=== PATIENT | male | born 1950 | race Caucasian/White ===

== ENCOUNTER 2018-10-31 07:45 | Inpatient (IN) | payer MEDICARE, OTHER ==
--- NOTE | 2018-10-25 13:45 | HP ---
HISTORY AND PHYSICAL: DATE OF ADMISSION/SURGERY: 10/31/18 DATE OF OFFICE VISIT: 10/25/18 SURGEON: Natalie Miller MD * (DICTATED BYJOCELINE DE LUNA) PROCEDURE: Right total knee arthroplasty. CHIEF COMPLAINT: Right knee pain. HISTORY OF PRESENT ILLNESS: Mr. Florez is a 68-year-old gentleman with continued complaints of right knee pain. He has failed conservative treatment and elected to proceed with a right total knee arthroplasty. PAST MEDICAL HISTORY: Hypertension, high cholesterol, diabetes. PAST SURGICAL HISTORY: Right knee scope x2, tonsillectomy. CURRENT MEDICATIONS: 1. Metformin 500 mg daily. 2. Atenolol 50 mg daily. 3. Lovastatin 20 mg q.h.s. 4. Aspirin 81 mg. 5. Ibuprofen as needed. ALLERGIES: No known drug allergies. FAMILY HISTORY: Coronary artery disease. SOCIAL HISTORY: He is a 68-year-old gentleman. He lives with his spouse. He does not smoke or use drugs. Uses occasional alcohol. REVIEW OF SYSTEMS: A complete 14-point review of systems was reviewed with the patient, was positive for diabetes. He denies history of DVT, PE, hepatitis, HIV, or anesthesia problems. PHYSICAL EXAMINATION GENERAL: He is well developed, well nourished, in no acute distress. VITAL SIGNS: He stands 67 inches tall, weighs 198 pounds. His blood pressure is 142/72, his heart rate is 65. HEENT: Normocephalic, atraumatic. NECK: Supple. No palpable lymph nodes. PULMONARY: The lungs are clear to auscultation bilaterally. CARDIO: Regular rate and rhythm. Strong S1 and S2. ABDOMEN: Soft, nontender, nondistended. NEUROLOGICAL: He is alert and oriented x3. MUSCULOSKELETAL: Right lower extremity: The skin is intact. There are no open wounds or abrasions. There is some tenderness along the medial and lateral joint line. There is a 12-degree valgus deformity. Range of motion is 10 to 120 degrees of flexion. He has a 2+ dorsalis pedis pulse. His lower extremity muscle group strengths are intact at 5/5. He has intact sensation. ASSESSMENT AND PLAN: Mr. Florez is a 68-year-old gentleman with end-stage osteoarthritis of the right knee. He has failed conservative treatment and elected to proceed with a right total knee arthroplasty. The surgery is scheduled for 10/31/[address] Miller discussed the risks and benefits of the surgery at today's visit and all of his questions were answered. He will follow up with Dr. Miller 2 weeks after the surgery. JOCELINE DE LUNA [id number]/[facility] #: [id number] MONA
[~2018-10-31 07:45] MED LIST: Buffered Lidocaine 1% SYRIN* 1 ML/SYRINGE INTRADERM ONE; Dexamethasone IV* 4 MG/ML 1 ML (4 MG) IV SLOW PU ONE; Famotidine IV* 10 MG/ML 2 ML (20 mg) IV ONE; Gabapentin CAP(*) 300 MG PO ONE; Lactated Ringers 1000 ML Bag* 1,000 ML IV SCH; Tranexamic Acid 1,000 MG in NS 0.9% 50 ML* (outpatient use) IV SCH; celeCOXIB CAP* 200 MG PO ONE
--- OUTSIDE RECORDS SUMMARY | 2018-10-31 07:49 | XMS REPORT | Continuity of Care Document ---
:1950 External Reference #:[id number] Author Name Za Dunlap Care Team Providers Name Role Phone Anatoly Fuller MD Primary Care Physician Unavailable Payers Date Identification Numbers Payment Provider Subscriber Policy Number: [id number] Medicare Jonathan Florez PayID: [id number] [address] [place] [address] Expires: 2018 Policy Number: [id number] Medicare Jonathan Florez PayID: [id number] [address] [place] [address] Policy Number: [id number] [employer]-[facility] Jonathan Florez PayID: [id number] [address] [place] [address] Advance Directives Description No Information Available Problems Date Description Provider Status Onset: 04/10/2018 Localized, primary osteoarthritis Natalie Miller M.D. Active Onset: 04/10/2018 Acquired genu valgum Natalie Miller M.D. Active Onset: 04/10/2018 Localized, secondary osteoarthritis Natalie Miller M.D. Active Family History Date Family Member(s) Observation Comments General Heart Disease General Hypertension Social History Type Date Description Comments Sex Unknown Lives With Spouse Occupation Retired Tobacco Use Start: Unknown Patient has never smoked Smoking Status Reviewed: 10/25/18 Patient has never smoked Allergies, Adverse Reactions, Alerts Description No Known Drug Allergies Medications Medication Date Status Form Strength Qnty SIG Indications Ordering Provider Metformin HCL 00/00/ Active Tablets 500mg Unknown 0000 Atenolol 00/00/ Active Tablets 50mg 1 by Unknown 0000 mouth every day Lovastatin 00/ Active Tablets 20mg take 1 Unknown 0000 tablet at bedtime Multi Vitamin 00/ Active Tablets 1 by Unknown 0000 mouth every day Aspirin Adult Low / Active Tablets 81mg 1 by Unknown Dose 0000 DR mouth every day Fish Oil / Active Unknown 0000 Cinnamon / Active Unknown 0000 Ibuprofen / Active Unknown 0000 Meloxicam 04/10/ Hx Tablets 15mg 30tabs 1 by M25.461 Natalie 2017 - mouth Paul, 05/21/ every day M.D. 2017 Cyclobenzaprine 04/10/ Hx Tablets 10mg 30tabs 1 tablet M25.461 Natalie HCL 2017 - by mouth Paul, 10/24/ [facility] as M.D. 2018 needed muscle spasms Immunizations Description No Information Available Vital Signs Date Vital Result Comment 10/25/2018 8:55am Height 67 inches 5'7" Weight 198.00 lb Heart Rate 65 /min BP Systolic 142 mmHg BP Diastolic 72 mmHg Respiratory Rate 16 /min Body Temperature 98.6 F Pain Level 0 BMI (Body Mass Index) 31.0 kg/m2 09/27/2018 10:04am Height 67 inches 5'7" Weight 196.00 lb BP Systolic 150 mmHg BP Diastolic 78 mmHg BMI (Body Mass Index) 30.7 kg/m2 05/22/2018 8:09am Height 67 inches 5'7" Weight 192.00 lb Heart Rate 72 /min BP Systolic 160 mmHg BP Diastolic 70 mmHg Pain Level 1 BMI (Body Mass Index) 30.1 kg/m2 04/10/2018 8:18am Height 65 inches 5'5" Weight 197.00 lb BP Systolic 136 mmHg BP Diastolic 76 mmHg Respiratory Rate 18 /min Body Temperature 97.8 F Pain Level 0 BMI (Body Mass Index) 32.8 kg/m2 Results Description No Information Available Procedures Description No Information Available Encounters Type Date Location Provider Dx Diagnosis Office Visit 09/27/2018 Orthopedic Natalie Miller, M25.561 Pain in right 10:00a [facility] Rm knee M25.461 Effusion, right knee M21.061 Valgus deformity, not elsewhere classified, right knee M17.11 Unilateral primary osteoarthritis, right knee Office Visit 05/22/2018 8:15a [facility] Natalie Miller, M25.561 Pain in right Of [facility] Rm knee M25.461 Effusion, right knee M21.061 Valgus deformity, not elsewhere classified, right knee M17.31 Unilateral post-traumatic osteoarthritis, right knee Office Visit 04/10/2018 8:00a [facility] Natalie Miller, M25.561 [facility].461 Effusion, right knee M21.061 Valgus deformity, not elsewhere classified, right knee M17.31 Unilateral post-traumatic osteoarthritis, right knee Plan of Treatment Future Appointment(s):11/11/2018 8:45 am - Natalie Miller M.D. at [facility]10/31/2018 10:30 am - TARA Piña at [facility].10/31/2018 10:30 am - JOCELINE Villegas at [facility].10/31/2018 10:30 am - Natalie Miller M.D. at [facility].10/25/2018 - Natalie Miller M.D.M25.561 Pain in right kneeFollow up:Follow up: 2 weeks after [id number] Effusion, right kneeM21.061 Valgus deformity, not elsewhere classified, right kneeM17.11 Unilateral primary osteoarthritis, right knee
--- OUTSIDE RECORDS SUMMARY | 2018-10-31 07:49 | XMS REPORT | Continuity of Care Document ---
:1950 External Reference #:[id number] Author Name Fina Evans O.D. Address [address] [place] [address] Care Team Providers Name Role Phone Anatoly Fuller M.D. Primary Care Physician Unavailable Payers Type Date Identification Numbers Payment Provider Subscriber Onset: 2014 Policy Number: [id number] Medicare - NGS Jonathan Florez PayID: [id number] [address] [place] [address] Policy Number: [id number] [employer] Ppo/Pos/Epo/Nap Jonathan Florez Group Number: [id number] [address] PayID: [id number] [place] [address] Advance Directives Description No Information Available Problems Date Description Provider Status Onset: Type 2 diabetes mellitus Active Onset: Essential hypertension Active Onset: Hypercholesterolemia Active Onset: 02/18/2015 Ocular hypertension Fina Evans O.D. Active Onset: 02/18/2015 Hypermetropia Fina Evans O.D. Active Onset: 02/18/2015 High Risk Open Angle Glaucoma Fina Evans O.D. Active Onset: 03/24/2016 Open angle with borderline findings, Fina Evans O.D. Active high risk, bilateral Onset: 11/12/2017 Foreign body in conjunctival sac, Christine Lennon O.D. Active right eye, initial encounter Onset: 10/05/2017 Presbyopia Fina Evans O.D. Active Family History Date Family Member(s) Problem(s) Comments Father No Current Problems Mother Glaucoma Social History Type Date Description Comments Sex Unknown Marital Status Legal Status: Occupation Retired [employer] ETOH Use Denies alcohol use Tobacco Use Start: Unknown Patient has never smoked Recreational Drug Use Never Used Drugs Smoking Status Reviewed: 10/15/18 Patient has never smoked Allergies, Adverse Reactions, Alerts Description No Known Drug Allergies Medications Medication Date Status Form Strength Qnty SIG Indications Ordering Provider Fish Oil 03/22/ Active Capsules 1000mg 1 by Fina Crystal 2015 mouth Nathan, every day O.D. Metformin HCL ER 0000/ Active Tablets ER 500mg Midura, 0000 24HR Anatoly M.D. Lovastatin 00/ Active Tablets 20mg Midura, 0000 Anatoly M.D. Atenolol 00/ Active Tablets 50mg Midura, 0000 Anatoly M.D. Ibuprofen 00/ Active Tablets 600mg Midura, 0000 Anatoly M.D. Cinnamon / Active Capsules 500mg 1 by Unknown 0000 mouth every day Centrum Silver / Active Unknown 0000 Aspirin / Active Tablets DR 81mg Unknown 0000 Meloxicam / Active Tablets 15mg Unknown 0000 Cyclobenzaprine 00/ Active Tablets 5mg Unknown HCL 0000 Erythromycin 11/12/ Hx Ointment 5mg/GM 1Tube apply T15.11xA Christine Tarango - evan Lennon, 11/16/ strip to O.D. 2018 right eye 2xday for 2 days then at bedtime only for 5 days. Immunizations Description No Information Available Vital Signs Description No Information Available Results Description No Information Available Procedures Date Code Description Status 04/12/2018 88448 Visual Field Exam Extended Completed 04/12/2018 95025 Est Patient Intermediate Exam Completed 11/12/2017 90228 Est Patient Intermediate Exam Completed 10/05/2017 26272 Scanning Computerized Ophthalmic Diagnostic Imag Posterior Completed Seg On 10/05/2017 06903 Determination Of Refractive State Completed 10/05/2017 19001 Est Patient Comprehensive Exam Completed 04/04/2017 21147 Scanning Computerized Ophthalmic Diagnostic Imag Posterior Completed Seg On 04/04/2017 16203 Visual Field Exam Extended Completed 04/04/2017 27106 Est Patient Intermediate Exam Completed 09/26/2016 76598 Determination Of Refractive State Completed 09/26/2016 25907 Est Patient Intermediate Exam Completed 03/24/2016 68138 Est Patient Comprehensive Exam Completed 03/24/2016 05412 Visual Field Exam Extended Completed 03/24/2016 14150 Scanning Computerized Ophthalmic Diagnostic Imag Posterior Completed Seg On 09/23/2015 26856 Est Patient Comprehensive Exam Completed 03/23/2015 51487 Visual Field Exam Extended Completed 03/23/2015 79919 Pachymetry Completed 02/18/2015 72827 Scanning Computerized Ophthalmic Diagnostic Imag Posterior Completed Seg On 02/18/2015 07072 Determination Of Refractive State Completed 02/18/2015 77351 Est Patient Comprehensive Exam Completed 06/25/2012 42094 Est Patient Comprehensive Exam Completed 07/04/2010 58997 Determination Of Refractive State Completed 07/04/2010 12445 New Patient Comprehensive Exam Completed Encounters Type Date Location Provider Dx Diagnosis Office Visit 03/23/2015 Jovi Bal, Fina Evans, 365.05 High Risk Open 9:45a , pc Lynn Angle Glaucoma Plan of Treatment 10/15/2018 - Fina Evans O.D.H40.023 Open angle with borderline findings, high risk, bilateralComments:Smoking can increase the risk of developing or worsening any eye related disease, as well as affect your overall health. If you are a smoker, we strongly recommend that you quit.If you are not a smoker, we strongly recommend that you do not start. Dr. Evans is considering you a Glaucoma suspect. This means the eye pressure in your eyes are higher than average, your optic nerve appearance is suspicious, or you have strong risk factors; but you have not been diagnosed with Glaucoma. Follow up appointments are very important to keep.Follow up:6 months IOP check/VF 24-2
[2018-10-31] MEDS ORDERED: Dexamethasone IV* 4 MG/ML 1 ML (4 MG) ONE (08:30)
[2018-10-31] MEDS ORDERED: celeCOXIB CAP* 100 MG ONE (08:30)
[2018-10-31] MEDS ORDERED: Famotidine IV* 10 MG/ML 2 ML (20 mg) ONE (08:30)
[2018-10-31] MEDS ORDERED: Gabapentin CAP(*) 300 MG ONE (08:30)
[2018-10-31] MEDS ORDERED: Buffered Lidocaine 1% SYRIN* 1 ML/SYRINGE INTRADERM ONE (08:31)
[2018-10-31] MEDS ORDERED: ceFAZolin 2 GM PREMIX in ORs 2 GM/50 ML BAG IVPB ONE (08:33)
[2018-10-31] MEDS ORDERED: ROPIVACAINE 5 MG/ML 30 ML BTL (0.5%) ONE (08:58)
[2018-10-31] MEDS ORDERED: fentaNYL* 50 MCG/ML 2 ML VIAL (100 MCG VIAL) ONE ×2 (08:59→12:04)
[2018-10-31] MEDS ORDERED: Midazolam* 1 MG/ML 2 ML VIAL (2 MG) ONE (08:59)
[2018-10-31] MEDS ORDERED: Lidocaine 2% PF * 5 ML VIAL ONE ×2 (08:59→09:30)
[2018-10-31] MEDS ORDERED: Bupivacaine 0.5%* 50 ML VIAL ONE (09:16)
[2018-10-31] MEDS ORDERED: Naloxone* 0.4 MG/ML 1 ML VIAL IV PRN (09:55)
[2018-10-31] MEDS ORDERED: fentaNYL* 50 MCG/ML 2 ML VIAL (100 MCG VIAL) IV PRN (09:55)
[2018-10-31] MEDS ORDERED: DiMENhydriNATE IV* 50 MG/ML VIAL IV PUSH PRN (09:55)
[2018-10-31] MEDS ORDERED: Propofol* 10 MG/ML 20 ML BTL ONE (10:35)
[2018-10-31] MEDS ORDERED: Ondansetron INJ* 2 MG/ML VIAL ONE (11:24)
[2018-10-31] MEDS ORDERED: Morphine VIAL* 4 MG/ML VIAL (1 ml vial) IV PRN (13:01)
[2018-10-31] MEDS ORDERED: diPHENhydraMINE IV* 50 MG/ML 1 ml VIAL (BENADRYL) IV PRN (13:01)
[2018-10-31] MEDS ORDERED: Cyclobenzaprine TAB* 10 MG PO PRN (13:01)
[2018-10-31] MEDS ORDERED: diPHENhydraMINE PO* 25 MG PO PRN (13:01)
[2018-10-31] MEDS ORDERED: Bisacodyl SUPP* 10 MG SUPP PR PRN (13:01)
[2018-10-31] MEDS ORDERED: Magnesium Hydroxide LIQ* 30 ML UDC PO PRN (13:01)
[2018-10-31] MEDS ORDERED: Polyethylene Glycol 3350* 17 GM PACKET PO PRN (13:01)
[2018-10-31] MEDS ORDERED: HYDROmorphone INJ1* 1 MG/ML SYRINGE ONE (13:08)
[2018-10-31] MEDS ORDERED: oxyCODONE/Acetamin 5/325 MG* TAB PO PRN (13:12)
[2018-10-31] MEDS: HYDROmorphone INJ1* 1 MG/ML SYRINGE IV PRN ×3 (13:13→13:33)
[2018-10-31] MEDS ORDERED: oxyCODONE/Acetamin 5/325 MG* TAB ONE (13:40)
[2018-10-31] MEDS: oxyCODONE/Acetamin 5/325 MG* TAB PO PRN ×2 (13:42→19:49)
[2018-10-31] MEDS: traMADol TAB* 50 MG PO PRN (15:06)
--- NOTE | 2018-10-31 15:46 | PN ---
Progress Note - Progress Note Date of Service: 10/31/18 Note: patient seen at bedside, present. He is doing well. Block still working well, no complaints of knee pain POD 0 s/p Right total knee arthroplasty. has active dorsiflexion of the right foot, gross sensation intact. Eliquis for DVT prophylaxis to start in am 2/15.
[2018-10-31] MEDS: oxyCODONE TAB* 5 MG TAB PO PRN ×2 (16:54→22:44)
[2018-10-31] MEDS: Lactated Ringers 1000 ML Bag* 1,000 ML IV SCH (16:55)
[2018-10-31] MEDS: Acetaminophen TAB* 325 MG PO SCH ×2 (17:17→23:45)
[2018-10-31] MEDS: CMCS:Lovastatin (NF) 10 MG TAB PO SCH (18:06)
[2018-10-31] MEDS: ceFAZolin 1 GM ADVAN(*) 1 GM in NS 0.9% 50 ML* 50 ML IVPB SCH (18:28)
--- NOTE | 2018-10-31 19:25 | CONS ---
[facility] MEDICINE CONSULTATION REPORT: DATE OF CONSULT: 10/31/18 PROVIDER: Laura Elizondo NP ATTENDING PHYSICIAN: Dr. Miller. CONSULTING PHYSICIAN: Dr. Juan Carlos Rios (dictated by Laura Elizondo NP) . REASON FOR CONSULT: Co-management of chronic medical conditions. HISTORY OF PRESENT ILLNESS: Mr. Florez is a 68-year-old male with a past medical history significant for hypertension, hyperlipidemia, and type 2 diabetes, who presented to [facility] today for an elective right total knee arthroplasty with Dr. Miller. For complete details, please see dictated H and P from JOCELINE Dunn. In brief, the patient had ongoing pain and failed conservative measures, therefore opted for an elective right total knee arthroplasty with Dr. Miller. In the immediate postoperative period, the patient does complain of mild right knee pain. He has no other complaints. He denies any recent fever, chills, nausea, vomiting, or diarrhea. Denies any abdominal pain. Denies any chest pain or shortness of breath. Denies any cough or hemoptysis. Denies any urinary frequency, urgency, or dysuria. He denies any recent sick contacts. Due to his history of hypertension, hyperlipidemia, and diabetes, we were asked to co-manage his care during this hospitalization. PAST MEDICAL HISTORY: 1. Hypertension. 2. Hyperlipidemia. 3. Diabetes. PAST SURGICAL HISTORY: 1. Tonsillectomy. 2. Right knee surgery x2. 2. Colonoscopy. HOME MEDICATIONS: Include: 1. Metformin 500 mg p.o. daily. 2. Atenolol 50 mg p.o. daily. 3. Lovastatin 20 mg p.o. daily. 4. Aspirin 81 mg p.o. daily. 5. Ibuprofen p.r.n. ALLERGIES: No known drug allergies. FAMILY HISTORY: Mother with a history of heart disease. Brother with a history of bypass and heart disease. Brother with a history of diabetes. No reported history of cancer. SOCIAL HISTORY: The patient denies any smoking history. Does report rare alcohol use. Denies any illicit drug use. He lives with his . Surrogate decision maker in the event he is unable to make his own decision is his . He is a full code. REVIEW OF SYSTEMS: There has been no fever, no chills. No unintended weight loss. No chest pain or edema. No cough, hemoptysis, or shortness of breath. No nausea, vomiting, or diarrhea. No dysuria or urinary frequency. No focal weakness or sensory losses. No visual complaints, arthralgias, or myalgias. No skin rashes, lesions, or open sores. No depression or anxiety. PHYSICAL EXAM: Vital Signs: Blood pressure 128/47, temperature 97.3, heart rate is 58, respirations 16, O2 saturation 100%. General: Mr. Florez is sitting on the stretcher in the recovery room. He is in no acute distress. HEENT: Head is atraumatic, normocephalic. Eyes: EOMs are intact. Sclerae anicteric and not pale. Oral mucosa appeared to be moist. Neck is supple. Lungs are clear to auscultation bilaterally. No wheezes, rales, or rhonchi. Cardiac: S1 , S2. Regular rate and rhythm. Abdomen is soft and nontender. Bowel sounds are present x4. Extremities: Pedal pulses are +2 bilaterally. Sensation is intact to bilateral lower extremities. He is able to move all 4 extremities. DIAGNOSTIC STUDIES/LAB DATA: WBCs on 10/25/18 were 10.9, RBCs 5.0, hemoglobin 14.9, hematocrit was 44, platelet count was 239. INR was 0.90. Sodium 139, potassium 4.6, chloride 103, carbon dioxide was 29, anion gap 7, BUN was 18, creatinine 0.91, glucose was 194. ASTs were 19, ALTs were 23, alkaline phosphatase was 83. Urine was within normal limits, no abnormalities. IMPRESSION AND PLAN: Mr. Florez is a 68-year-old male with past medical history significant for hypertension, hyperlipidemia, and diabetes, who presented to [facility] for an elective right total knee arthroplasty with Dr. Miller. In the immediate postoperative period, the patient has no complaints. Our recommendations are as follows: 1. Status post right total knee arthroplasty. Management per Orthopedics. PT/ OT per Orthopedics. DVT prophylaxis per Orthopedics. Bowel regimen per Orthopedics. Pain management per Orthopedics. 2. Hypertension. I would continue his atenolol with holding parameters for systolic blood pressure less than 110. 3. Hyperlipidemia. He should continue on his lovastatin as previously prescribed. 4. Diabetes. I would hold his metformin and place him on a lispro sliding scale with a consistent carb diet, Accu-Cheks a.c. 5. DVT prophylaxis: Per Orthopedics. 6. He is a full code. 7. Fluids, electrolytes, and nutrition: He should be placed on a consistent carb diet. TIME SPENT: Time spent on this consultation was 45 minutes, more than half that time was spent at the bedside interviewing the patient of events leading thus far to his hospitalization, the other half the time was spent performing my physical exam and reviewing my plan of care. I have discussed this with my attending, Dr. Juan Carlos Rios; he is in agreement with my plan. LAURA ELIZONDO, CENTER MACHINE OPERATOR [id number]/[facility] #: [id number] MONA
[2018-10-31] MEDS: Docusate CAP* 100 MG PO SCH (19:50)
[2018-10-31] MEDS: Magnesium Hydroxide LIQ* 30 ML UDC PO SCH (19:50)
[2018-11-01] MEDS ORDERED: Dextrose 50% Syringe 50 ML* 25 GM/50 ML SYRINGE IV PUSH PRN (01:04)
[2018-11-01] MEDS: oxyCODONE/Acetamin 5/325 MG* TAB PO PRN ×3 (01:24→17:35)
[2018-11-01] MEDS: ceFAZolin 1 GM ADVAN(*) 1 GM in NS 0.9% 50 ML* 50 ML IVPB SCH ×2 (02:13→10:21)
[2018-11-01] MEDS: oxyCODONE TAB* 5 MG TAB PO PRN ×3 (03:57→15:20)
[2018-11-01] MEDS: Lactated Ringers 1000 ML Bag* 1,000 ML IV SCH (03:58)
[2018-11-01] MEDS: Ondansetron INJ* 2 MG/ML VIAL IV PRN ×2 (05:58→11:51)
[2018-11-01 06:58] LABS: Hematocrit 39 % (42-52); Hemoglobin 12.9 g/dl (14.0-18.0); Mean Platelet Volume 8.2 fL (7.4-10.4); Platelet Count 223 10^3/ul (150-450)
[2018-11-01 07:16] LABS: BUN/Creatinine Ratio 17.7 (8-20); Calcium 9.2 mg/dL (8.6-10.3); EGFR African American 117.3 (>60); Potassium 4.3 mmol/L (3.5-5.0)
[2018-11-01] MEDS: Acetaminophen TAB* 325 MG PO SCH ×2 (08:17→15:21)
[2018-11-01] MEDS: Atenolol TAB* 50 MG PO SCH (08:18)
[2018-11-01] MEDS: Apixaban* 2.5 MG TAB PO SCH ×2 (08:19→20:51)
[2018-11-01] MEDS: Docusate CAP* 100 MG PO SCH ×2 (08:20→20:51)
[2018-11-01] MEDS: Magnesium Hydroxide LIQ* 30 ML UDC PO SCH ×2 (08:20→20:51)
[2018-11-01] MEDS ORDERED: metFORMIN* 500 MG TAB PO SCH (09:00)
[2018-11-01] MEDS ORDERED: Atenolol TAB* 50 MG PO SCH (09:00)
[2018-11-01] MEDS: Insulin LISPRO* 1 UNITS UNIT SUBCUT SCH ×3 (10:18→19:31)
[2018-11-01] MEDS: traMADol TAB* 50 MG PO PRN ×2 (10:22→17:36)
[2018-11-01] MEDS ORDERED: Scopolamine 1.5 mg* PATCH TRANSDERM SCH (11:00)
--- NOTE | 2018-11-01 11:27 | PN ---
Progress Note - Progress Note Date of Service: 11/01/18 SOAP: Subjective: []Patient seen OOB in chair, present. He had one episode of vomiting this am. Had Zofran earlier. He thinks it may be the Morphine causing N/V. His pain is in otherwise good control. He denies SOB, CP, palpitations. Objective: [] Vital Signs Temp 97.4 F 11/01/18 07:33 Pulse 56 11/01/18 07:33 Resp 18 11/01/18 10:22 BP 137/41 11/01/18 07:33 Pulse Ox 100 11/01/18 07:33 Intake & Output 10/31/18 11/01/18 11/01/18 18:59 06:59 18:59 Intake Total 2000 950 250 Output Total 200 1450 Balance 1800 -500 250 Weight 197 lb Intake: IV Fluids 2000 100 ABX - CEFAZOLIN 100 LR 2000 Oral 850 250 Output: Gao 200 1450 Other: # Bowel Movements 0 Laboratory Results - last 24 hr 11/01/18 11/01/18 11/01/18 06:41 06:41 07:23 Hgb 12.9 L Hct 39 L Plt Count 223 MPV 8.2 Sodium 137 Potassium 4.3 Chloride 101 Carbon Dioxide 28 Anion Gap 8 BUN 14 Creatinine 0.79 Est GFR ( Amer) 117.3 Est GFR (Non-Af Amer) 97.0 BUN/Creatinine Ratio 17.7 Glucose 183 H POC Glucose (mg/dL) 173 H Calcium 9.2 Right knee dressings are dry and intact calf NT and soft +Df right ankle sensation and circulation intact distally Assessment: []s/p Right total knee arthroplasty POD #1 Plan: []PT/OT WBAT RLE Scopolamine patch ordered Eliquis 2.5 mg BID for DVT prophylaxis Home in 1-2 days
--- NOTE | 2018-11-01 11:46 | OP ---
OPERATIVE NOTE: DATE OF OPERATION: 10/31/18 DATE OF : 46 ATTENDING SURGEON: Natalie Miller MD. ASSEMBLER CONVERTIBLE TOP: JOCELINE Piña. Ms. Tran did help throughout the procedure with preparation of the leg, wound retraction, manipulat ion of the knee, and would closure. ANESTHESIOLOGIST: Dr. Vargas. ANESTHESIA: Spinal. PRE-OP DIAGNOSIS: Severe end-stage degenerative osteoarthritis of the right knee joint. POST-OP DIAGNOSIS: Severe end-stage degenerative osteoarthritis of the right knee joint. OPERATIVE PROCEDURE: Right total knee arthroplasty. TOURNIQUET TIME: 55 minutes. ESTIMATED BLOOD LOSS: 200 cc. COMPLICATIONS: None. SPECIMEN: Bone and cartilage from the right knee joint sent to pathology. HARDWARE: This is cemented [employer] total knee arthroplasty hardware. Two packages of Simpl ex bone cement. For the femur, a right size 6 narrow posterior stabilized Legion femoral component. For the tibia, a size 5 right Anne Marie II tibial base plate. For the insert, a 9-mm posterior stabil ized insert. For the patella, a 32-mm 3-peg all poly patella with 7.5 thickness. BRIEF HISTORY/INDICATION: Mr. Florez is a 68-year-old gentleman with years of increasingly severe righ t knee pain. He failed conservative treatment with antiinflammatories, pain medication, intraarticul ar injection, and physical therapy. Radiograph showed [id number] arthritis. Due to continued pain and decreased quality of life, he elected to undergo right total knee arthroplasty. Informed consent was obtained from the patient. He understood the risks of surgery included but were not limited to bleeding, infection, damage to nearby structures, continued pain, need for further surgery, intraoper ative fracture, nerve palsy, hardware failure or loosening, knee stiffness, loss of motion, stroke, h eart attack, blood clot, and . He wished to proceed. INTRAOPERATIVE FINDINGS: Intraoperatively, the patient was noted to have severe end-stage arthritis with tricompartmental full-thickness loss of cartilage. DESCRIPTION OF PROCEDURE: Mr. Florez was identified in the preanesthesia unit. His right lower extrem ity was marked as correct operative site. Informed consent was signed and placed in the chart. The patient was taken to the operating room and was placed under spinal anesthesia. A Gao catheter was placed. Tourniquet was placed on the right thigh. Right lower extremity was prepped and draped in the usual sterile fashion. Pre-op time-out was made to correctly identify the patient, side, and sit e. Appropriate perioperative antibiotics were given within 1 hour of incision. Tourniquet was inflated and total tourniquet time for this procedure was 55 minutes. A midline incis ion was made with a 10-blade and carried down to the extensor mechanism. A new 10-blade was used to make a standard medial parapatellar arthrotomy. Patella was subluxed laterally. Electrocautery was used to subperiosteally elevate the soft tissue off the superomedial tibia to the mid sagittal plane. The patella was subluxed laterally. Knee was flexed up. The anterior horn of the lateral meniscus and ACL were sharply released. A drill was used to enter the distal femur. Intramedullary distal f emoral cutting guide was pinned on the distal femur. Oscillating saw was used to make the distal fem oral cut. Next, the external rotation guide was pinned on the distal femur. The distal femur was si zed to a size 6. Size 6 multi-cutting jig was pinned on the distal femur. Oscillating saw was used to make the appropriate 4-chamfer cuts. The PCL was completely released. Extramedullary tibial cutting guide was pinned on the proximal tibi a. Oscillating saw was used to make the proximal tibial cut perpendicular to the mechanical axis of the tibia. The bone was carefully removed. Knee was brought out out into full extension. There was good medial and lateral ligamentous balancing. Flexion and extension gaps were well balanced. The k nee was flexed up. Lamina director of elementary education was placed both medially and laterally. Any remaining meniscus w as carefully removed using electrocautery. Curved osteotome was used to remove any posterior osteoph ytes. Tibial tray and drop ralph were placed and showed a satisfactory tibial cut. A right size 6 narrow femoral trial was impacted onto the distal femur. The trial had excellent fit and stability. The box for the posterior stabilized implant was prepared using a reamer and box cut osteotome. Size 5 tibial trial with a 9-mm insert trial was placed and the knee was taken through ra nge of motion. Knee had full extension to 130 degrees of flexion with good patellofemoral tracking. Patella was everted. A 7-mm of patellar bone and cartilage was carefully removed using an oscillatin g saw. Patella was sized to a size 32. Three peg holes were drilled through the size 32 guide. A 3 2 trial patella with 7.5 thickness was placed and the knee was taken through range of motion. There was satisfactory patellofemoral tracking. All trials were carefully removed. The tibia was subluxed anteriorly and sized to a size 5. Proxima l tibia was prepared using a size 5 keel punch. All bony cut surfaces were copiously irrigated with sterile saline and dried. Final implants were cemented into place starting with the tibia, followed by the femur, and last the patella. A 9-mm insert trial was placed while the knee was brought out in to full extension. Tourniquet was turned down at 55 minutes. Electrocautery was used to obtain meti culous hemostasis. The knee was copiously irrigated with sterile saline. Once the cement had fully cured, the insert trial was removed. Any excess cement was removed around the capsule and hardware. Final insert chosen was a 9-mm posterior stabilized articular insert, size 5/6. This was locked int o position on the tibial tray. Stability of the insert was checked and rechecked and noted to be sta ble. The extensor mechanism was closed using interrupted #1 Vicryls. The rest of the incision was closed in a layered fashion using 0 and 2-0 Vicryls. Skin was closed using running 3-0 nylon suture. Steri le Xeroform, 4x4s, and Webril were used to cover the incision. Serg wrap and cold pack were placed ov er this. The patient's anesthesia was reversed without difficulty. He was taken to the PACU in stab le condition. Intended weightbearing will be weightbearing as tolerated. Intended DVT prophylaxis w ill be Eliquis. [id number]/[facility] #: [id number]
--- NOTE | 2018-11-01 14:31 | PN ---
Subjective Date of Service: 11/01/18 Interval History: Pt is feeling well. He rates his pain at 4-5/10. He was up with PT today, and states that it went well. He had some nausea this morning after a dose of Clark , which is slowly subsiding after administration of zofran and scop patch. Pt is hopeful for discharge tomorrow. He denies CP, SOB, cough, fever, abd pain, v /d/c, pain in the calves, swelling in the LE. Objective Active Medications: Acetaminophen (Tylenol Tab*) 975 mg PO Q8H ANGÉLICA Apixaban (Eliquis*) 2.5 mg PO BID ANGÉLICA Atenolol (Tenormin Tab*) 50 mg PO QAM ANGÉLICA Bisacodyl (Dulcolax Supp*) 10 mg VT DAILY PRN Cyclobenzaprine HCl (Flexeril Tab*) 10 mg PO TID PRN Dextrose (D50w Syringe 50 Ml*) 12.5 gm IV PUSH .FOR FS < 60 - SS PRN Diphenhydramine HCl (Benadryl Iv*) 25 mg IV Q6H PRN Diphenhydramine HCl (Benadryl Po*) 25 mg PO Q6H PRN Docusate Sodium (Colace Cap*) 100 mg PO BID ANGÉLICA Lactated Ringer's (Lactated Ringers 1000 Ml Bag*) 1,000 mls @ 100 mls/hr IV PER RATE ANGÉLICA Insulin Human Lispro (Humalog*) 0 units SUBCUT AC ANGÉLICA; Protocol Lactulose (Lactulose*) 30 ml PO Q6H PRN Lovastatin (Mevacor (Nf)) 20 mg PO QPM ANGÉLICA Magnesium Hydroxide (Milk Of Magnesia Liq*) 30 ml PO BID ANGÉLICA Magnesium Hydroxide (Milk Of Magnesia Liq*) 30 ml PO Q6H PRN Morphine Sulfate (Morphine Vial*) 2 mg IV Q2H PRN Ondansetron HCl (Zofran Inj*) 4 mg IV Q6H PRN Oxycodone HCl (Roxycodone Tab*) 10 mg PO Q4H PRN Oxycodone/Acetaminophen (Percocet 5/325 Tab*) 2 tab PO Q3H PRN Oxycodone/Acetaminophen (Percocet 5/325 Tab*) 1 tab PO Q3H PRN Polyethylene Glycol/Electrolytes (Miralax*) 17 gm PO DAILY PRN Scopolamine (Transderm-Scop 1.5 Mg Patch*) 1 patch TRANSDERM Q72H ANGÉLICA Tramadol HCl (Ultram*) 50 mg PO Q6H PRN Vital Signs: Temp Pulse Resp BP Pulse Ox 97.6 F 57 18 142/45 98 11/01/18 11:50 11/01/18 11:50 11/01/18 13:43 11/01/18 11:50 11/01/18 11:50 Oxygen Devices in Use Now: None Appearance: Pt is sitting in chair with leg elevated. He appears well and is in no acute distress. He is pleasant, cooperative, and appropriate. Eyes: No Scleral Icterus, PERRLA Ears/Nose/Mouth/Throat: NL Teeth, Lips, Gums, Clear Oropharnyx, Mucous Membranes Moist Neck: NL Appearance and Movements; NL JVP, Trachea Midline Respiratory: Symmetrical Chest Expansion and Respiratory Effort, Clear to Auscultation Cardiovascular: NL Sounds; No Murmurs; No JVD, RRR Abdominal: NL Sounds; No Tenderness; No Distention, No Hepatosplenomegaly Extremities: No Clubbing, Cyanosis, - - Dressings to R knee CDI; cryo unit in place. B/l calves nontender to palpation. Pedal pulses 2+ b/l. Trace edema to RLE. Skin: No Rash or Ulcers Neurological: Alert and Oriented x 3, NL Sensation Result Diagrams: 11/01/18 06:41 11/01/18 06:41 Assess/Plan/Problems-Billing Assessment: Pt is a 68yom with PMHx HTN, HLD, DMII who presents s/p RTKA. - Patient Problems (1) Status post total right knee replacement Comment: -Management per ortho team (2) Diabetes mellitus Comment: -Continue Lispro ss (3) Hypertension Comment: -Stable -Continue Atenolol (4) Hyperlipidemia Comment: -Continue lovastatin (5) DVT prophylaxis Comment: -Per ortho: ze (6) Full code status Status and Disposition: Inpatient. Discharge per ortho team.
[2018-11-01] MEDS: CMCS:Lovastatin (NF) 10 MG TAB PO SCH (19:32)
[2018-11-02] MEDS: Acetaminophen TAB* 325 MG PO SCH ×4 (01:30→23:18)
[2018-11-02] MEDS ORDERED: Acetaminophen TAB* 325 MG PO SCH (04:30)
[2018-11-02 06:48] LABS: CO2 Carbon Dioxide 27 mmol/L (22-32); Calcium 8.7 mg/dL (8.6-10.3); Chloride 101 mmol/L (101-111); Sodium 136 mmol/L (135-145)
[2018-11-02 06:54] LABS: BUN/Creatinine Ratio 18.2 (8-20); Blood Urea Nitrogen 16 mg/dL (6-24); EGFR African American 103.6 (>60); EGFR Non-African American 85.6 (>60); Glucose 156 mg/dL (70-100)
[2018-11-02 06:57] LABS: Anion Gap 8 mmol/L (2-11)
[2018-11-02 07:30] LABS: Hematocrit 35 % (42-52); Hemoglobin 11.7 g/dl (14.0-18.0); Mean Corpuscular HGB Conc 33 g/dl (31-36); Mean Corpuscular Hemoglobin 30 pg (27-31); Mean Corpuscular Volume 89 fL (80-94); Platelet Count 220 10^3/ul (150-450); Red Blood Count 3.98 10^6/ul (4.00-5.40); Red Cell Distribution Width 14 % (10.5-15); White Blood Count 12.7 10^3/ul (3.5-10.8)
[2018-11-02] MEDS: Magnesium Hydroxide LIQ* 30 ML UDC PO SCH ×2 (09:22→21:06)
[2018-11-02] MEDS: Atenolol TAB* 50 MG PO SCH (09:22)
[2018-11-02] MEDS: Apixaban* 2.5 MG TAB PO SCH ×2 (09:22→21:06)
[2018-11-02] MEDS: traMADol TAB* 50 MG PO PRN ×2 (09:22→15:31)
[2018-11-02] MEDS: Docusate CAP* 100 MG PO SCH ×2 (09:22→21:06)
[2018-11-02] MEDS: Insulin LISPRO* 1 UNITS UNIT SUBCUT SCH ×3 (09:23→18:30)
--- NOTE | 2018-11-02 09:42 | PN ---
Progress Note - Progress Note Date of Service: 11/02/18 SOAP: Subjective: []Patient seen walking with therapy and aide from bed to chair. He remains fairly unsteady. Nursing reports increased confusion last night and this am. After working with PT this am they do not feel he is safe to go home today. JHe denies dizziness, SOB, CP or palpitations. Objective: [] Vital Signs Temp 98.9 F 11/02/18 03:50 Pulse 83 11/02/18 03:50 Resp 16 11/02/18 09:22 BP 162/38 11/02/18 03:50 Pulse Ox 93 11/02/18 03:50 Intake & Output 11/01/18 11/02/18 11/02/18 18:59 06:59 18:59 Intake Total 967 1360 0 Output Total 0 Balance 967 1360 0 Intake: IV Fluids 717 ABX - CEFAZOLIN 55 LR 662 Oral 250 1360 0 Output: Urine 0 Other: Estimated Void Medium Medium # Voids 1 Laboratory Results - last 24 hr 11/01/18 11/01/18 11/02/18 11:35 16:45 05:44 WBC 12.7 H RBC 3.98 L Hgb 11.7 L Hct 35 L MCV 89 MCH 30 MCHC 33 RDW 14 Plt Count 220 Sodium Potassium Chloride Carbon Dioxide Anion Gap BUN Creatinine Est GFR ( Amer) Est GFR (Non-Af Amer) BUN/Creatinine Ratio Glucose POC Glucose (mg/dL) 145 H 150 H Calcium 11/02/18 11/02/18 05:44 08:06 WBC RBC Hgb Hct MCV MCH MCHC RDW Plt Count Sodium 136 Potassium TNP 4.1 Chloride 101 Carbon Dioxide 27 Anion Gap 8 BUN 16 Creatinine 0.88 Est GFR ( Amer) 103.6 Est GFR (Non-Af Amer) 85.6 BUN/Creatinine Ratio 18.2 Glucose 156 H POC Glucose (mg/dL) Calcium 8.7 Right knee dressings were removed, no active drainage Incision benign, mild surrounding ecchymosis calf NT and soft +DF right ankle sensation and circulation remain intact Assessment: []s/p RTK POD #2 Plan: []Decrease narcotic pain medications and see if mentation improves Continue PT/OT as tolerated WBAT RLE Eliquis BID for DVT prophylaxis Possible discharge home 11/03 if less confused and safe for discharge
--- NOTE | 2018-11-02 16:35 | PN ---
Subjective Date of Service: 11/02/18 Interval History: Patient seen and examined. Overnight, was confused and needed extra care and reorientation. Per , patient not used to narcotic pain medication and feels patient has had side effects as a result. Denies fever or chills. Pain controlled. States he feels better than he did last night. Objective Active Medications: Acetaminophen (Tylenol Tab*) 975 mg PO 0000,0800,1600 [facility] Last Admin: 11/02/18 15:31 Dose: 975 mg Apixaban (Eliquis*) 2.5 mg PO BID [facility] Last Admin: 11/02/18 09:22 Dose: 2.5 mg Atenolol (Tenormin Tab*) 50 mg PO QAM [facility] Last Admin: 11/02/18 09:22 Dose: 50 mg Bisacodyl (Dulcolax Supp*) 10 mg DC DAILY PRN PRN Reason: constipation Cyclobenzaprine HCl (Flexeril Tab*) 10 mg PO TID PRN PRN Reason: SPASMS Last Admin: 11/01/18 15:19 Dose: 10 mg Dextrose (D50w Syringe 50 Ml*) 12.5 gm IV PUSH .FOR FS < 60 - SS PRN PRN Reason: FS < 60 Diphenhydramine HCl (Benadryl Iv*) 25 mg IV Q6H PRN PRN Reason: itching Diphenhydramine HCl (Benadryl Po*) 25 mg PO Q6H PRN PRN Reason: INSOMNIA Docusate Sodium (Colace Cap*) 100 mg PO BID [facility] Last Admin: 11/02/18 09:22 Dose: 100 mg Lactated Ringer's (Lactated Ringers 1000 Ml Bag*) 1,000 mls @ 100 mls/hr IV PER RATE [facility] Last Admin: 11/01/18 03:58 Dose: 100 mls/hr Insulin Human Lispro (Humalog*) 0 units SUBCUT AC [facility]; Protocol Last Admin: 11/02/18 13:18 Dose: 2 units Lactulose (Lactulose*) 30 ml PO Q6H PRN PRN Reason: constipation Last Admin: 11/02/18 15:30 Dose: 30 ml Lovastatin (Mevacor (Nf)) 20 mg PO QPM [facility] Last Admin: 11/01/18 19:32 Dose: 10 mg Magnesium Hydroxide (Milk Of Magnesia Liq*) 30 ml PO BID [facility] Last Admin: 11/02/18 09:22 Dose: 30 ml Magnesium Hydroxide (Milk Of Magnesia Liq*) 30 ml PO Q6H PRN PRN Reason: constipation Ondansetron HCl (Zofran Inj*) 4 mg IV Q6H PRN PRN Reason: nausea Last Admin: 11/01/18 11:51 Dose: 4 mg Oxycodone/Acetaminophen (Percocet 5/325 Tab*) 1 tab PO Q3H PRN PRN Reason: PAIN - MODERATE Last Admin: 11/01/18 11:30 Dose: 2 tab Polyethylene Glycol/Electrolytes (Miralax*) 17 gm PO DAILY PRN PRN Reason: Constipation Scopolamine (Transderm-Scop 1.5 Mg Patch*) 1 patch TRANSDERM Q72H [facility] Last Admin: 11/01/18 11:30 Dose: 1 patch Tramadol HCl (Ultram*) 50 mg PO Q6H PRN PRN Reason: PAIN Last Admin: 11/02/18 15:31 Dose: 50 mg Vital Signs - 8 hr 11/02/18 11/02/18 11/02/18 09:22 11:17 11:48 Temperature 99.5 F Pulse Rate 55 Respiratory 16 16 16 Rate Blood Pressure 112/42 (mmHg) O2 Sat by Pulse 95 Oximetry 11/02/18 15:31 Temperature Pulse Rate Respiratory 16 Rate Blood Pressure (mmHg) O2 Sat by Pulse Oximetry Oxygen Devices in Use Now: None Appearance: alert, NAD Eyes: No Scleral Icterus, PERRLA Ears/Nose/Mouth/Throat: NL Teeth, Lips, Gums, Mucous Membranes Moist Neck: NL Appearance and Movements; NL JVP, Trachea Midline Respiratory: Symmetrical Chest Expansion and Respiratory Effort, Clear to Auscultation Cardiovascular: NL Sounds; No Murmurs; No JVD, RRR, No Edema Abdominal: NL Sounds; No Tenderness; No Distention, No Hepatosplenomegaly Extremities: No Edema, No Clubbing, Cyanosis Skin: No Rash or Ulcers, - - surgical site CDI Neurological: Alert and Oriented x 3, NL Sensation, NL Muscle Strength and Tone Nutrition: Taking PO's Result Diagrams: 11/02/18 05:44 11/02/18 08:06 Assess/Plan/Problems-Billing Assessment: Pt is a 68yom with PMHx HTN, HLD, DMII who presents s/p RTKA. - Patient Problems (1) Status post total right knee replacement Code(s): Z96.651 - PRESENCE OF RIGHT ARTIFICIAL KNEE JOINT SNOMED Code(s): 5569172064887 Comment: - POC as per ortho - Decrease narcotics given confusion last night - DVT prophylaxis with apixiban BID - OOB with PT/OT (2) Diabetes mellitus Code(s): E11.9 - TYPE 2 DIABETES MELLITUS WITHOUT COMPLICATIONS SNOMED Code(s) : 12491117 Comment: - Continue Lispro ss (3) Hypertension Code(s): I10 - ESSENTIAL (PRIMARY) HYPERTENSION SNOMED Code(s): 39524308 Comment: - Atenolol daily (4) Hyperlipidemia Current Visit: Yes Status: Acute Code(s): E78.5 - HYPERLIPIDEMIA, UNSPECIFIED SNOMED Code(s): 58968798 Comment: -Continue statin (5) DVT prophylaxis Code(s): JBJ3328 - SNOMED Code(s): 638985154 Comment: - Apixiban (6) Full code status Code(s): Z78.9 - OTHER SPECIFIED HEALTH STATUS SNOMED Code(s): 797570831 Status and Disposition: Inpatient. Discharge per ortho team. Medically stable.
[2018-11-02] MEDS: CMCS:Lovastatin (NF) 10 MG TAB PO SCH (18:30)
[2018-11-03 05:30] LABS: Hematocrit 36 % (42-52); Hemoglobin 12.1 g/dl (14.0-18.0); Mean Platelet Volume 8.2 fL (7.4-10.4); Platelet Count 185 10^3/ul (150-450)
[2018-11-03] MEDS: Magnesium Hydroxide LIQ* 30 ML UDC PO SCH (07:58)
[2018-11-03 08:52] VITALS: BP 145/46
[2018-11-03] MEDS: Apixaban* 2.5 MG TAB PO SCH (08:55)
[2018-11-03] MEDS: Atenolol TAB* 50 MG PO SCH (08:55)
[2018-11-03] MEDS: Insulin LISPRO* 1 UNITS UNIT SUBCUT SCH (08:55)
[2018-11-03] MEDS: Acetaminophen TAB* 325 MG PO SCH (08:55)
[2018-11-03] MEDS: Docusate CAP* 100 MG PO SCH (08:55)
--- NOTE | 2018-11-03 09:41 | PN ---
Progress Note - Progress Note Date of Service: 11/03/18 SOAP: Subjective: [] Patient seen OOB in chair. Narcotics discontinued and confusion much improved. He feels ready to go home today. Objective: [] Vital Signs Temp 98.2 F 11/03/18 08:21 Pulse 68 11/03/18 08:21 Resp 16 11/03/18 09:00 BP 145/46 11/03/18 08:21 Pulse Ox 97 11/03/18 08:21 Intake & Output 11/02/18 11/03/18 11/03/18 18:59 06:59 18:59 Intake Total 0 775 Output Total 0 0 Balance 0 775 Intake: Oral 0 775 Output: Urine 0 0 Other: Estimated Void Medium Medium Date of Last Bowel 11/03/2018 Movement # Bowel Movements 1 Estimated Stool Amount Medium # Voids 1 1 Laboratory Results - last 24 hr 11/02/18 11/02/18 11/03/18 11:58 17:20 04:52 Hgb 12.1 L Hct 36 L Plt Count 185 MPV 8.2 POC Glucose (mg/dL) 189 H 155 H 11/03/18 07:54 Hgb Hct Plt Count MPV POC Glucose (mg/dL) 141 H Right knee incision benign calf NT and soft + DF right ankle sensation and circulation intact Assessment: []s/p RTK POD 3 Plan: []Discharge home today Continue Eliquis 2.5 mg BID for 1 month post op Tylenol for pain Follow up as scheduled with Dr. Miller
--- NOTE | 2018-11-03 09:48 | PN ---
Subjective Date of Service: 11/03/18 Interval History: No overnight events. No confusion. Feels better. States he feels constipated. Discussed using miralax. Was just seen by PT and did well including well on the stairs. Tolerating PO. No CP or SOB Objective Active Medications: Acetaminophen (Tylenol Tab*) 975 mg PO 0000,0800,1600 [facility] Last Admin: 11/03/18 08:55 Dose: 975 mg Apixaban (Eliquis*) 2.5 mg PO BID [facility] Last Admin: 11/03/18 08:55 Dose: 2.5 mg Atenolol (Tenormin Tab*) 50 mg PO QAM [facility] Last Admin: 11/03/18 08:55 Dose: 50 mg Bisacodyl (Dulcolax Supp*) 10 mg MI DAILY PRN PRN Reason: constipation Cyclobenzaprine HCl (Flexeril Tab*) 10 mg PO TID PRN PRN Reason: SPASMS Last Admin: 11/01/18 15:19 Dose: 10 mg Dextrose (D50w Syringe 50 Ml*) 12.5 gm IV PUSH .FOR FS < 60 - SS PRN PRN Reason: FS < 60 Diphenhydramine HCl (Benadryl Iv*) 25 mg IV Q6H PRN PRN Reason: itching Diphenhydramine HCl (Benadryl Po*) 25 mg PO Q6H PRN PRN Reason: INSOMNIA Docusate Sodium (Colace Cap*) 100 mg PO BID [facility] Last Admin: 11/03/18 08:55 Dose: 100 mg Lactated Ringer's (Lactated Ringers 1000 Ml Bag*) 1,000 mls @ 100 mls/hr IV PER RATE [facility] Last Admin: 11/01/18 03:58 Dose: 100 mls/hr Insulin Human Lispro (Humalog*) 0 units SUBCUT AC [facility]; Protocol Last Admin: 11/03/18 08:55 Dose: 1 units Lactulose (Lactulose*) 30 ml PO Q6H PRN PRN Reason: constipation Last Admin: 11/02/18 15:30 Dose: 30 ml Lovastatin (Mevacor (Nf)) 20 mg PO QPM [facility] Last Admin: 11/02/18 18:30 Dose: 20 mg Magnesium Hydroxide (Milk Of Magnesia Liq*) 30 ml PO BID [facility] Last Admin: 11/03/18 07:58 Dose: Not Given Magnesium Hydroxide (Milk Of Magnesia Liq*) 30 ml PO Q6H PRN PRN Reason: constipation Ondansetron HCl (Zofran Inj*) 4 mg IV Q6H PRN PRN Reason: nausea Last Admin: 11/01/18 11:51 Dose: 4 mg Oxycodone/Acetaminophen (Percocet 5/325 Tab*) 1 tab PO Q3H PRN PRN Reason: PAIN - MODERATE Last Admin: 11/01/18 11:30 Dose: 2 tab Polyethylene Glycol/Electrolytes (Miralax*) 17 gm PO DAILY PRN PRN Reason: Constipation Scopolamine (Transderm-Scop 1.5 Mg Patch*) 1 patch TRANSDERM Q72H [facility] Last Admin: 11/01/18 11:30 Dose: 1 patch Tramadol HCl (Ultram*) 50 mg PO Q6H PRN PRN Reason: PAIN Last Admin: 11/02/18 15:31 Dose: 50 mg Vital Signs - 8 hr 11/03/18 11/03/18 11/03/18 04:25 08:21 09:00 Temperature 98.4 F 98.2 F Pulse Rate 63 68 Respiratory 18 16 16 Rate Blood Pressure 136/47 145/46 (mmHg) O2 Sat by Pulse 95 97 Oximetry Oxygen Devices in Use Now: None Ears/Nose/Mouth/Throat: Mucous Membranes Moist Respiratory: Symmetrical Chest Expansion and Respiratory Effort, Clear to Auscultation Cardiovascular: RRR, - - soft murmur Abdominal: - - hypoactive bowel sounds, morbidly obese, soft, NT Extremities: - - ice and maximo wrap on RLE Neurological: Alert and Oriented x 3, NL Muscle Strength and Tone Result Diagrams: 11/03/18 04:52 11/02/18 08:06 Assess/Plan/Problems-Billing Assessment: Pt is a 68yom with PMHx HTN, HLD, DMII who presents s/p right total knee . - Patient Problems (1) Constipation Current Visit: Yes Status: Acute Code(s): K59.00 - CONSTIPATION, UNSPECIFIED SNOMED Code(s): 18411154 Comment: A. No BM today Recommend scheduled colace and senna with prn Miralax (2) Diabetes mellitus Current Visit: Yes Status: Acute Code(s): E11.9 - TYPE 2 DIABETES MELLITUS WITHOUT COMPLICATIONS SNOMED Code(s): 53536414 Comment: - Continue Lispro ss (3) Full code status Current Visit: Yes Status: Acute Code(s): Z78.9 - OTHER SPECIFIED HEALTH STATUS SNOMED Code(s): 477536993 (4) Hyperlipidemia Current Visit: Yes Status: Acute Code(s): E78.5 - HYPERLIPIDEMIA, UNSPECIFIED SNOMED Code(s): 08357267 Comment: -Continue statin (5) Hypertension Current Visit: Yes Status: Acute Code(s): I10 - ESSENTIAL (PRIMARY) HYPERTENSION SNOMED Code(s): 33815853 Comment: - Atenolol daily (6) Status post total right knee replacement Current Visit: Yes Status: Acute Code(s): Z96.651 - PRESENCE OF RIGHT ARTIFICIAL KNEE JOINT SNOMED Code(s): 7245917079746 Comment: POD: 2 Doing well with lower dose of narcotics - POC as per ortho - DVT prophylaxis with apixiban BID - OOB with PT/OT (7) DVT prophylaxis Current Visit: Yes Status: Acute Code(s): YTR4137 - SNOMED Code(s): 470621736 Comment: - Apixiban Status and Disposition: Inpatient. Discharge per ortho team. Medically stable.
--- NOTE | 2018-11-03 12:39 | DS ---
AMENDED REPORT NOW INCLUDES COSIGNER DESIGNATION DISCHARGE SUMMARY: DATE OF ADMISSION: 10/31/18 DATE OF DISCHARGE: 11/03/18 ATTENDING PHYSICIAN: Dr. Natalie Miller.* (DICTATED BY JOCELINE LORA) ADMISSION DIAGNOSIS: Severe end-stage degenerative osteoarthritis, right knee joint. DISCHARGE DIAGNOSIS: Severe end-stage degenerative osteoarthritis, right knee joint. SURGERY PERFORMED: Right total knee arthroplasty. HOSPITAL COURSE: Mr. Florez is a 68-year-old male with increasingly severe right knee pain. He failed conservative management with antiinflammatories, pain medication, intraarticular cortisone injections, and physical therapy. His plain films revealed [id number] degenerative arthritis. Due to continued pain and decreased quality of life, he elected to proceed with right total knee arthroplasty. He was taken to the operating room under the care of Dr. Natalie Miller on date of 10/31/18. He tolerated the procedure well and left the operating room in stable condition. Postoperatively, he progressed slowly initially with his PT/OT goals. He had some confusion postoperatively which was found to be from narcotic pain medications. Once his narcotics were discontinued, his mentation cleared significantly. It was felt he was stable medically and orthopedically for discharge to home on the date of 11/03/18. CONDITION ON DISCHARGE: His vital signs reveal a temperature of 98.2, pulse 68 , respiratory rate 16, O2 saturation 97% on room air, blood pressure 145/46. His right knee incision is healing without redness, drainage, or evidence of infection. His calf is soft and nontender. He has active dorsiflexion of the right ankle without calf pain. His sensation and circulation are intact distally. PLAN: The patient will be discharged to home today, 11/03/18. He will participate with outpatient physical therapy at [facility] and [place]. He will continue with Eliquis 2.5 mg p.o. b.i.d. for 1 month postoperatively. He will use Extra Strength Tylenol for pain. A narcotic pain prescription was not provided as this has caused significant confusion. He will follow up as scheduled with Dr. Miller in the office in roughly 10 to 14 days. All questions were answered. JOCELINE LORA [id number]/[facility] #: [id number] MONA
== END 2018-11-03 11:22 | disposition home or self-care (01) | DRG 470 ==
LOC: AA 07:45 → SSU 14:22
PROVIDERS: ADMIT Orthopaedic Surgery Adult Reconstructive Orthopaedic Surgery; ATTEND Orthopaedic Surgery Adult Reconstructive Orthopaedic Surgery
PROC: 0SRC0J9 Replacement of Right Knee Joint with Synthetic Substitute, Cemented, Open Approach (ICD-10-PCS; principal; 2018-10-31 10:45)
DX: M17.11 Unilateral primary osteoarthritis, right knee (principal); I10 Essential (primary) hypertension; E11.9 Type 2 diabetes mellitus without complications; E78.5 Hyperlipidemia, unspecified; K59.00 Constipation, unspecified; R41.0 Disorientation, unspecified; Z79.84 Long term (current) use of oral hypoglycemic drugs; Z79.1 Long term (current) use of non-steroidal anti-inflammatories (NSAID); Z79.82 Long term (current) use of aspirin; Z79.899 Other long term (current) drug therapy; Z82.49 Family history of ischemic heart disease and other diseases of the circulatory system; Z83.3 Family history of diabetes mellitus; M25.761 Osteophyte, right knee
CPT/HCPCS: 36415; 80048; 85014; 85018; 85027; 85049; 88305; 88311; A9270-GY; C1776; G8978-GP-CL; G8979-GP-CI; G8980-GP-CL; G8987-GO-CJ; G8988-GO-CJ; G8989-GO-CJ; J0690; J1100; J1170; J2250; J2270; J2405; J2704; J2795; J3010